=== PATIENT | female | born 1970 | race Caucasian/White ===

== ENCOUNTER 2023-10-30 12:19 | Emergency (ER) | payer OTHER, SELFPAY ==
[2023-10-30 12:21] VITALS: BP 192/89; PULSE 86; RESP 16; TEMP 36.8; O2SAT 100; BMI 30.4
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
[2023-10-30 12:25] VITALS: O2SAT 100
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
[2023-10-30 13:20] VITALS: BP 158/76; PULSE 74; RESP 15; O2SAT 97
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
--- OUTSIDE RECORDS SUMMARY | 2023-10-30 14:27 | XMS RPT_ITS | CCD ---
Author Name Unknown Address [address] [place] [address] Organization [facility] Care Team Providers Care Heel Nailing Machine Operator Name Role Phone Angel Suarez MD Primary Care Provider ANGEL SUAREZ Referring Unavailab le ANGEL SUAREZ Primary Care Unavailab le Problems Active Problems Problem Classification Problem Date Documented Da te Episodic/Chronic Other female genital disorders (4 sources) Premenstrual tension syndrome; Translations: [Premenstrual tension syndrome] Onset: 04-23-2008 04-23-2008 Chronic Other screening for suspected conditions (not mental disorders or infectious disease) (3 sources) Patient encounter status; Translations: [Encounter for screening mammogram for malignant neoplasm of breast] Onset: 12-07-2022 Episodic Past or Other Problems Problem Classification Problem Date Documented Date Episodic/Chronic Other female genital disorders (4 sources) Cervical intraepithelial neoplasia grade 2; Translations: [Moderate cervical dysplasia] Onset: 09-27-2010 09-27-2010 Episodic Results Test Name Value Interpretation Reference Range Facil ity Encounters Encounter Date Encounter Type Care Provider Facility Start: 12-10-2022 Telephone encounter Osmel Suarez MD Work Phone: [facility] Procedures Date Procedure Procedure Detail Performing Clinician Start: 12-07-2022 End: 12-07-2022 Mammography Bulk Order Provider Start: 10-18-2021 Mammography Osmel Suarez MD Work Phone: Start: 04-18-2020 Lipid 1996 panel - S nadia or Plasma Screen Wstr Plan of Treatment Date Care Activity Detail Author Start: 04-18-2025 Lipid 1996 panel - Serum or Plasma Lipid Screening [facility] Start: 04-18-2025 LIPID SCREEN LIPID SCREEN [facility] Start: 12-07-[address] [facility] Start: 06-14-2023 Influenza vaccination Influenza Vaccine (#1) [facility] Start: 04-18-2023 DIABETES SCREEN DIABETES SCREEN [facility] Start: 04-18-2023 Diabetes Screening Diabetes Screening [facility] Start: 10-18-[address] [facility] Start: 10-14-2022 DEPRESSION ASSESSMENT DEPRESSION ASSESSMENT [facility] Start: 06-14-2022 Influenza vaccination INFLUENZA (#1) [facility] Start: 11-24-2019 HPV TESTING HPV TESTING [facility] Start: 11-24-2019 PAP TESTING PAP TESTING [facility] Start: 2019 SHINGRIX VACCINE (1 of 2) SHINGRIX VACCINE (1 of 2) [facility] Start: 2014 COLOGUARD (FIT-DNA) COLOGUARD (FIT-DNA) [facility] Start: 2014 Colonoscopy [address] [facility] Start: 2014 COLORECTAL CANCER SCREENING COLORECTAL CANCER SCREENING [facility] Start: [address] COLONOGRAPHY [facility] Start: 2014 FECAL OCCULT BLOOD FECAL OCCULT BLOOD [facility] Start: 2014 [address]OS[address] [facility] Start: 1988 Urine microalbumin profile [facility] Start: 1987 HEPATITIS C SCREENING HEPATITIS C SCREENING [facility] Start: 1987 HIV SCREENING HIV SCREENING [facility] Start: 1969 COVID-19 VACCINE (#1) COVID-19 VACCINE (#1) [facility] Start: 1969 HEPATITIS B (1 of 3 - 3-dose series) HEPATITIS B (1 of 3 - 3-dose series) [facility] Start: 1969 Hepatitis B Vaccine (1 of 3 - 3-dose series) Hepatitis B Vaccine (1 of 3 - 3-dose series) [facility] End: 12-28-2023 ESTELLA SCREENING ESTELLA SCREENING Radiology Routine Encounter for screening mammogram for breast cancer 1 Occurrences starting 11/28/2022 until 12/28/2023 [facility] Work Phone: Payers Date Payer Category Payer Unknown [id number] 2019 Unknown [id number] Social History Date Type Detail Facility Start: 11-24-2014 Tobacco smoking status NHIS Ex-smoker [facility] Work Phone: End: 10-14-2002 History of tobacco use Current smoker [facility] Work Phone: End: 10-14-2002 History of tobacco use Cigarette Smoker [facility] Work Phone: Start: 11-24-2014 Tobacco use and exposure Smokeless tobacco non-user [facility] Work Phone: Start: 04-20-2020 Alcohol intake Current drinker of alcohol (finding) [facility] Start: 04-20-2020 History SDOH Alcohol Frequency [address] [facility] Start: 04-20-2020 History SDOH Alcohol Std Drinks [address] [facility] Start: 11-24-2014 Alcohol Comment Occasionally [facility] Start: 1970 Sex Assigned At Female [facility] Start: 04-20-2020 End: 09-19-2020 History of Social function [facility] Work Phone: Start: 04-20-2020 End: 09-19-2020 Alcohol Use Disorder Identification Test - Consumption [AUDIT-C] [facility] Work Phone: How often to you hav e a drink containing alcohol? 2-[address] time [address] [facility] Work Phone: How many standard dr inks containing alcohol do you have on a typical day? [address] [facility] Work Phone: Frequency of Binge Drinking Not on file [facility] Start: 09-22-2021 Gender identity Identifies as female gender (finding) [facility] Note 12-10-2022 Telephone Encounter - Oma Hook Ma - 12/10/2022 10:12 AM ESTTelephone Encounter - Oma Hook Ma - 12/10/2022 10:12 AM EST Note Date & Type Note Facility 12-10-2022 Miscellaneous Notes Formattin g of this note might be different from the original. [employer] message sent to pt notifying her of normal mamm and Provider recommendation. Oma Hook Ma ----- Message from Angel Suarez MD sent at 12/10/2022 10:00 AM EST ----- Negative mammogram. Repeat in 1 year. documented in this encounter [facility] Progress note 12-07-2022 Note Date & Type Note Facility 12-07-2022 Note HNO ID: [id number] Author: RT Chelle(R) Service: Radiology Author Type: Traveling Crane Operator Type: Progress Notes Filed: 12/07/2022 9:11 AM Note Text: Radiology Service Progress Note PATIENT NAME: Olvin Retana DATE OF SERVICE: December 07, 2022 TIME: 9:10 AM PATIENT IDENTITY VERIFICATION COMPLETED USING TWO (2) IDENTIFIERS: Name and Date of confirmed by patient verbally. FALL SCREENING: Has the patient had 2 falls in the last year or 1 fall with injury or currently using an Ambulatory Assistive Device (Walker, Cane, Wheelchair, Crutches, etc.)? No PATIENT GENDER DATA: Female. status: : No status: NO. PATIENT RELEVANT IMPLANT DATA REVIEWED: Yes RADIOLOGY DEPARTMENT: Mammography PERIPHERAL IV DATA: Not applicable SIGNED BY: RT Chelle(R) December 07, 2022 9:10 AM [facility] Note 12-07-2022 Letter - Mammography Coordinator - 12/07/2022 10:10 AM EST Note Date & Type Note Facility 12-07-2022 Miscellaneous Notes Formattin g of this note might be different from the original. December 11, 2022 PID: [id number] Olvin Retana [address] [place] [address] Dear Ms. Retana, We are pleased to inform you that the results of your recent breast imaging exam on 12/07/2022 are normal. Your mammogram demonstrates that you have dense breast tissue, which could hide abnormalities. Dense breast tissue, in and of itself, is a relatively common condition. Therefore, this information is not provided to cause undue concern; rather, it is to raise your awareness and promote discussion with your health care provider regarding the presence of dense breast tissue in addition to other risk factors. Early detection of cancer is very important. We also understand recommendations regarding breast cancer screening are controversial. Please discuss with your primary care provider which strategy is best for you and whether a mammogram is right for you. Your imaging studies and report will be kept on file at [facility] as part of your permanent medical record and are available for your continuing care. Thank you for allowing us to help in meeting your health care needs. Sincerely, Dr. Parker Interpreting Radiologist [facility] (Normal over 40) documented in this encounter [facility] History of Present illness Narrative 12-07-2022 Olvin Chaudhari RT(R) - 12/07/2022 9:10 AM EST Note Date & Type Note Facility 12-07-2022 History of Presen t illness Narrative Radiology Service Progress Note PATIENT NAME: Olvin Retana DATE OF SERVICE: December 07, 2022 TIME: 9:10 AM PATIENT IDENTITY VERIFICATION COMPLETED USING TWO (2) IDENTIFIERS: Name and Date of confirmed by patient verbally. FALL SCREENING: Has the patient had 2 falls in the last year or 1 fall with injury or currently using an Ambulatory Assistive Device (Walker, Cane, Wheelchair, Crutches, etc.)? No PATIENT GENDER DATA: Female. status: : No status: NO. PATIENT RELEVANT IMPLANT DATA REVIEWED: Yes RADIOLOGY DEPARTMENT: Mammography PERIPHERAL IV DATA: Not applicable SIGNED BY: RT Chelle(R) December 07, 2022 9:10 AM documented in this encounter [facility] Clinical Note 11-28-2022 Note Date & Type Note Facility 11-28-2022 Note Patient Outreach (IN TMMN) OLVIN RETANA ([id number]) 1970 F Date Time Provider Department 11/28/22 ANGEL SUAREZ During your visit today, we recorded the following information about you: Allergies As of Date: 11/28/2022 (No Known Allergies) Date Reviewed: 04/20/2020 [facility] Podlogar - Fully Assessed Visit Diagnosis:Encounter for screening mammogram for breast cancer [Z12.31] Order(s):ESTELLA SCREENING [[id number]] Order #: [id number] FUTURE Meds Comments as of 04/23/2008: All medications reviewed today/April 23, 2008 Kay Bellamy Lpn Problem List As Of Date 11/28/2022 Noted Resolved PREMENSTRUAL TENSION [N94.3] 04/23/2008 Moderate dysplasia of cervix [N87.1] 09/27/2010 Encounter Status:Closed by ELIZA PENG on 12/03/22 [facility] Evaluation note Note Date & Type Note Facility documented in this encounter [facility] Evaluation note Note Date & Type Note Facility documented in this encounter [facility] Reason for referral (narrative) Diagnostic Procedure Only (Routine) - Pending Review Note Date & Type Note Facility Referral ID Status Reason Start Date Expiration Date Visits Requested Visits Authorized [id number] Pending Review Auto-Generat ed Referral 11/28/2022 12/28/2023 1 1 [facility] Reason for referral (narrative) Diagnostic Procedure Only (Routine) - Closed Note Date & Type Note Facility Referral ID Status Reason Start Date Expiration Date V isits Requested Visits Authorized [id number] Closed Auto-Generate d Referral 11/28/2022 12/28/2023 1 1 [facility] Reason for visit Narrative Diagnostic Procedure Only (Routine) - Closed Note Date & Type Note Facility Referral ID Status Reason Start Date Expiration Date V isits Requested Visits Authorized [id number] Closed Auto-Generate d Referral 11/28/2022 12/28/[address] [facility] Summary Purpose Family History No Family History Records Found Advance Directives No Advanced Directives Records Found Additional Source Comments Source Comments (unrecognize d section and content) In the event this informatio n is protected by the Federal Confidentiality of Alcohol and Drug Abuse Patient Records regulations: The Federal rules restrict any use of the information to criminally investigate or prosecute any alcohol or drug abuse patient.[facility] the event this information is protected by the Federal Confidentiality of Alcohol and Drug Abuse Patient Records regulations: The Federal rules restrict any use of the information to criminally investigate or prosecute any alcohol or drug abuse patient.[facility] the event this information is protected by the Federal Confidentiality of Alcohol and Drug Abuse Patient Records regulations: The Federal rules restrict any use of the information to criminally investigate or prosecute any alcohol or drug abuse patient.[facility] the event this information is protected by the Federal Confidentiality of Alcohol and Drug Abuse Patient Records regulations: The Federal rules restrict any use of the information to criminally investigate or prosecute any alcohol or drug abuse patient.[facility] Care Teams (unrecognized sec tion and content) Heel Nailing Machine Operator Relationship Specialty Start Date End Date Angel Suarez MD [address] [place] [address] PCP - General Family Medicine 04/20/20 Heel Nailing Machine Operator Relationship Specialty Start Date End Date Angel Suarez MD [address] [place] [address] PCP - General [facility] 04/20/20 Heel Nailing Machine Operator Relationship Specialty Start Date End Date Angel Suarez MD [address] [place] [address] PCP - General Family Medicine 04/20/20 Reason for Visit (unrecogniz ed section and content) INFORMATION SOURCE (unrecogn ized section and content) FOR RECORDS PERTAINING TO PATIENTS WHO ARE OR HAVE BEEN ENROLLED IN A CHEMICAL DEPENDENCY/SUBSTANCEABUSE PROGRAM, SOME INFORMATION MAY BE OMITTED. This clinical summary was aggregated from multiple sources. Caution should be exercised in using it in the provision of clinical care. This summary normalizes information from multiple sources, and as a consequence, information in this document may materially change the coding, format and clinical context of patient data. In addition, data may be omitted in some cases. CLINICAL DECISIONS SHOULD BE BASED ON THE PRIMARY CLINICAL RECORDS. [facility] [employer] [facility]. provides no warranty or guarantee of the accuracy or completeness of information in this document.
[2023-10-30 14:46] VITALS: BP 135/88; PULSE 80; RESP 13; O2SAT 100
== END 2023-10-30 15:37 | disposition home or self-care (01) ==
PROVIDERS: Emergency Provider Emergency Medicine; Visit Provider Emergency Medicine
DX: S82.51XA Displaced fracture of medial malleolus of right tibia, initial encounter for closed fracture (principal); S63.91XA Sprain of unspecified part of right wrist and hand, initial encounter; S20.20XA Contusion of thorax, unspecified, initial encounter; V49.40XA Driver injured in collision with unspecified motor vehicles in traffic accident, initial encounter
CPT/HCPCS: 71045; 73110; 73590; 73610; 93005; 99283

== ENCOUNTER → 2023-11-06 | Outpatient (CLI) | payer OTHER, SELFPAY ==
--- OUTSIDE RECORDS SUMMARY | 2023-11-06 08:24 | XMS RPT_ITS | CCD ---
Author Name Unknown Address [address] [place] [address] Organization [facility] Care Team Providers Care Branch Employment Coordinator Name Role Phone Angel Suarez MD Primary [...] Telephone encounter Osmel Suarez MD Work Phone: [facility] Procedures Date Procedure Procedure Detail Performing Clinician Start: 12-07-2022 End: 12-07-2022 Mammography Bulk Order Provider Start: 10-18-2021 Mammography Osmel Suarez MD Work Phone: Start: 04-18-2020 Lipid 1996 panel - S nadia or Plasma Screen Wstr Plan of Treatment Date Care Activity Detail Author Start: 04-18-2025 Lipid 1996 panel - Serum or Plasma Lipid Screening [facility] Start: 04-18-2025 LIPID SCREEN LIPID SCREEN [facility] Start: 12-07-2023 Mammography [facility] Start: 06-14-2023 Influenza vaccination Influenza Vaccine (#1) [facility] Start: 04-18-2023 DIABETES SCREEN DIABETES SCREEN [facility] Start: 04-18-2023 Diabetes Screening Diabetes Screening [facility] Start: 10-18-2022 Mammography MAMMOGRAM [facility] Start: 10-14-2022 DEPRESSION ASSESSMENT DEPRESSION ASSESSMENT [facility] Start: 06-14-2022 Influenza vaccination INFLUENZA (#1) [facility] Start: 11-24-2019 HPV TESTING HPV TESTING [facility] Start: 11-24-2019 PAP TESTING PAP TESTING [facility] Start: 2019 SHINGRIX VACCINE (1 of 2) SHINGRIX VACCINE (1 of 2) [facility] Start: 2014 COLOGUARD (FIT-DNA) COLOGUARD (FIT-DNA) [facility] Start: 2014 Colonoscopy COLONOSCOPY [facility] Start: 2014 COLORECTAL CANCER SCREENING COLORECTAL CANCER SCREENING [facility] Start: [address] COLONOGRAPHY [facility] Start: 2014 FECAL OCCULT BLOOD FECAL OCCULT BLOOD [facility] Start: 2014 SIGMOIDOSCOPY SIGMOIDOSCOPY [facility] Start: 1988 Urine microalbumin profile [facility] Start: 1987 HEPATITIS C SCREENING HEPATITIS C SCREENING [facility] Start: 1987 HIV SCREENING HIV SCREENING [facility] Start: 1969 COVID-19 VACCINE (#1) COVID-19 VACCINE (#1) [facility] Start: 1969 HEPATITIS B (1 of 3 - 3-dose series) HEPATITIS B (1 of 3 - 3-dose series) [facility] Start: 1970 Hepatitis B Vaccine (1 of 3 - 3-dose series) Hepatitis B Vaccine (1 of 3 - 3-dose series) [facility] End: 12-28-2023 ESTELLA SCREENING ESTELLA SCREENING Radiology Routine Encounter for screening mammogram for breast cancer 1 Occurrences starting 11/28/2022 until 12/28/2023 [facility] Work Phone: Payers Date Payer Category Payer Unknown [id number] 2019 Unknown [id number] Social History Date Type Detail Facility Start: 11-24-2014 Tobacco smoking status NHIS Ex-smoker [facility] Work Phone: End: 10-14-2002 History of tobacco use Current smoker [facility] Work Phone: End: 10-14-2002 History of tobacco use Cigarette Smoker [facility] Work Phone: Start: 11-24-2014 Tobacco use and exposure Smokeless tobacco non-user [facility] Work Phone: Start: 04-20-2020 Alcohol intake Current drinker of alcohol (finding) [facility] Start: 04-20-2020 History SDOH Alcohol Frequency 4 [facility] Start: 04-20-2020 History SDOH Alcohol Std Drinks 1 [facility] Start: 11-24-2014 Alcohol Comment Occasionally [facility] Start: 1970 Sex Assigned At Female [facility] Start: 04-20-2020 End: 09-19-2020 History of Social function [facility] Work Phone: Start: 04-20-2020 End: 09-19-2020 Alcohol Use Disorder Identification Test - Consumption [AUDIT-C] [facility] Work Phone: How often to you hav e a drink containing alcohol? 2-3 time sa week [facility] Work Phone: How many standard dr inks containing alcohol do you have on a typical day? 1 or 2 [facility] Work Phone: Frequency of Binge Drinking Not on file [facility] Start: 09-22-2021 Gender identity Identifies as female gender (finding) [facility] Note 12-10-2022 Telephone Encounter - Oma Hook Ma - 12/10/2022 10:12 AM ESTTelephone Encounter - Oma Hook Ma - 12/10/2022 10:12 AM EST Note Date & Type Note Facility 12-10-2022 Miscellaneous Notes Formattin g of this note might be different from the original. [employer] message sent to pt notifying her of normal mamm and Provider recommendation. Oma Hook Ma ----- Message from Angel Suarez MD sent at 12/10/2022 10:00 AM EST ----- Negative mammogram. Repeat in 1 year. documented in this encounter [facility] Progress note 12-07-2022 Note Date & Type Note Facility 12-07-2022 Note HNO ID: [id number] Author: RT Chelle(R) Service: Radiology Author Type: [employer] Supervisor Type: Progress Notes Filed: 12/07/2022 9:11 AM [...] December 07, 2022 9:10 AM [facility] Note 12-07-2022 Letter - Mammography Coordinator - 12/07/2022 10:10 AM EST Note Date & Type Note Facility 12-07-2022 Miscellaneous Notes Formattin g of this note might be different from the original. December 11, 2022 PID: [id number] Olvin Retana [address] [place] [address] Dear Ms. Retana, We are pleased to [...] report will be kept on file at [facility] as part of your permanent medical record and are available for your continuing care. Thank you for allowing us to help in meeting your health care needs. Sincerely, Dr. Parker Interpreting Radiologist [facility] (Normal over 40) documented in this encounter [facility] History of Present illness Narrative 12-07-2022 [...] 2022 9:10 AM documented in this encounter [facility] Clinical Note 11-28-2022 Note Date & Type Note Facility 11-28-2022 Note Patient Outreach (IN TMMN) OLVIN RETANA ([id number]) 1970 F Date Time Provider Department 11/28/22 ANGEL SUAREZ During your visit today, we recorded the following information about you: Allergies As of Date: 11/28/2022 (No Known Allergies) Date Reviewed: 04/20/2020 [facility] Podlogar - Fully Assessed Visit Diagnosis:Encounter for screening mammogram for breast cancer [Z12.31] Order(s):ESTELLA SCREENING [[id number]] Order #: [id number] FUTURE Meds Comments as of 04/23/2008: All medications reviewed today/April 23, 2008 Kay Bellamy Lpn Problem List As Of Date 11/28/2022 Noted Resolved PREMENSTRUAL TENSION [N94.3] 04/23/2008 Moderate dysplasia of cervix [N87.1] 09/27/2010 Encounter Status:Closed by ELIZA PENG on 12/03/22 [facility] Evaluation note Note Date & Type Note Facility documented in this encounter [facility] Evaluation note Note Date & Type Note Facility documented in this encounter [facility] Reason for referral (narrative) Diagnostic Procedure Only (Routine) - Pending Review Note Date & Type Note Facility Referral ID Status Reason Start Date Expiration Date Visits Requested Visits Authorized [id number] Pending Review Auto-Generat ed Referral 11/28/2022 12/28/[address] [facility] Reason for referral (narrative) Diagnostic Procedure Only (Routine) - Closed Note Date & Type Note Facility Referral ID Status Reason Start Date Expiration Date V isits Requested Visits Authorized [id number] Closed Auto-Generate d Referral 11/28/2022 12/28/[address] [facility] Reason for visit Narrative Diagnostic Procedure Only (Routine) - Closed Note Date & Type Note Facility Referral ID Status Reason Start Date Expiration Date V isits Requested Visits Authorized [id number] Closed Auto-Generate d Referral 11/28/2022 12/28/2023 1 1 [facility] Summary Purpose Family History No Family [...] or prosecute any alcohol or drug abuse patient.[facility] the event this information is protected by the Federal Confidentiality of Alcohol and Drug Abuse Patient Records regulations: The Federal rules restrict any use of the information to criminally investigate or prosecute any alcohol or drug abuse patient.[facility] the event this information is protected by the Federal Confidentiality of Alcohol and Drug Abuse Patient Records regulations: The Federal rules restrict any use of the information to criminally investigate or prosecute any alcohol or drug abuse patient.[facility] the event this information is protected by the Federal Confidentiality of Alcohol and Drug Abuse Patient Records regulations: The Federal rules restrict any use of the information to criminally investigate or prosecute any alcohol or drug abuse patient.[facility] Care Teams (unrecognized sec tion and content) Branch Employment Coordinator Relationship Specialty Start Date End Date Angel Suarez MD [address] [place] [address] PCP - General Family Medicine 04/20/20 Branch Employment Coordinator Relationship Specialty Start Date End Date Angel Suarez MD [address] [place] [address] PCP - General [facility] Medicine 04/20/20 Branch Employment Coordinator Relationship Specialty Start Date End Date Angel Suarez MD [address] [place] [address] PCP - General Family Medicine [...] BE BASED ON THE PRIMARY CLINICAL RECORDS. [facility] [employer] [facility]. provides no warranty or guarantee of the accuracy or completeness of information in this document.
[2023-11-06 08:34] LABS: Absolute Lymphocyte Count 1.79 X10^3/uL (0.83-4.51); Absolute Neutrophil Count 4.4 X10^3/uL (2.0-7.7); Basophil# 0.05 X10^3/uL; Basophil% 0.7 % (0-1); Eosinophil# 0.25 X10^3/uL; Eosinophils% 3.5 % (0-5); Hematocrit 42.7 % (37-47); Hemoglobin 13.6 g/dL (12.0-15.0); Lymphocyte # 1.79 X10^3/ul (0.83-4.51); Lymphocyte % 24.8 % (19-41); Mean Corp Hgb Conc 31.9 g/dL (32-36); Mean Corpuscular Hgb 31.5 pg (27.0-32.0); Mean Corpuscular Volume 98.8 fL (81-99); Mean Platelet Vol. 9.7 fl (6.2-12.0); Monocyte% 9.7 % (0-10); NRBC Flagged by Analyzer 0 % (0-5); Neutrophil # 4.42 X10^3/uL (2.7-7.7); Platelet Count 392 K/mm3 (150-450); RBC Distribution Width CV 13.3 % (11.6-14.6); RBC Distribution Width SD 48.9 fl (35.1-43.9); Red Blood Count 4.32 M/mm3 (4.2-5.4); White Blood Count 7.2 K/mm3 (4.4-11.0)
[2023-11-06 09:00] LABS: Anion Gap 1 (5-15); BUN 15 mg/dL (7-18); BUN/Creat Ratio 18.4 RATIO (10-20); Calcium,Total 9.7 mg/dL (8.5-10.1); Chloride 110 mmol/L (98-107); Creatinine, Serum 0.82 mg/dL (0.55-1.02); EST Glomerular Filtration Rate 77 mL/min (>60); Est Glom Filt Rate - Afr Amer 94 mL/min (>60); Glucose 101 mg/dL (74-106); Sodium Level 138 mmol/L (136-145)
== END | disposition home or self-care (01) ==
LOC: LAB 08:03
PROVIDERS: Referring Provider Specialist; Visit Provider Specialist
DX: Z01.818 Encounter for other preprocedural examination (principal)
CPT/HCPCS: 36415; 80048; 85025